=== PATIENT | male | born 1955 ===

== ENCOUNTER 2022-02-11 21:09 | Emergency (ER) | payer SELFPAY ==
[~2022-02-11] VITALS: Ht 167.6 cm; Wt 77.3 kg
[2022-02-11 21:22] VITALS: BP 135/89
[2022-02-11 22:09] LABS: COVID AG,FIA SOURCE NASAL SWAB
[2022-02-11 22:22] LABS: RAPID GROUP A STREP NEGATIVE (NEGATIVE)
[2022-02-11 22:37] LABS: INFLUENZA TYPE B NEGATIVE FOR TYPE B (NEGATIVE)
[2022-02-11 22:51] LABS: INFLUENZA TYPE A POSITIVE FOR TYPE A (NEGATIVE)
== END 2022-02-12 | disposition home or self-care (01) ==
LOC: EMS 21:10
DX: J11.1 Influenza due to unidentified influenza virus with other respiratory manifestations (principal)
CPT/HCPCS: 87430; 87804; 99283